=== PATIENT | male | born 1965 | race Caucasian/White ===

== ENCOUNTER 2016-06-16 12:00 | Emergency (ER) | payer OTHER ==
[~2016-06-16] VITALS: Ht 172.7 cm; Wt 100.1 kg
[~2016-06-16 12:00] MED LIST: ADVAIR HFA120 INHALA IH; ALPHAGAN P100 DROP/1 RIGHT EYE; ASPIR-LOW81 MG PO; CLEOCIN300 MG PO; DELTASONE20 M1 PO; FOLIC ACID1 MG PO; FUROSEMIDE40 MG PO; LO-DOSE ASPIRIN81 M2 PO; LOSARTAN POTASS25 MG PO; MEDROL DOSEPAK4 MG PO; METOPROLOL SUCC50 MG PO; NORCO 5/3251 TABLET PO; ONE DAILY MULT1 EACH PO; PRAVASTATIN SOD40 MG PO; PREDNISONE10 MG PO; PRILOSEC20 MG PO; PROAIR HFA8.5 GM IH; SPIRIVA RESPIMAT4 GM IH; SYMBICORT60 INHALAT IH; THIAMINE HCL100 MG PO; Thiamine,Vitamin B1 PO; VITAMIN B-1100 MG PO
[2016-06-16 12:47] LABS: EOSINOPHIL (%) 1.9 % (0-5); EOSINOPHIL COUNT 0.1 K/uL (0-0.3); HEMATOCRIT 40.9 % (38.0-50.0); IMMATURE GRANULOCYTE (%) 0.2 % (0.0-0.7); IMMATURE GRANULOCYTE COUNT 0.1 K/uL; LYMPHOCYTE COUNT 1.5 K/uL (1.0-2.8); MCH 33.9 PG (29.0-34.0); MCHC 34.5 G/DL (30.0-36.0); MCV 98.3 FL (86-99); MEAN PLAT.VOLUME 10.3 uM^3 (9.0-12.4); MONOCYTE (%) 9.7 % (3-12); MONOCYTE COUNT 0.5 K/uL (0-0.8); NEUTROPHIL (%) 54.8 % (45-76); NEUTROPHIL COUNT 2.5 K/uL (1.8-6.4); PLATELET COUNT 124 K/uL (156-360); RBC DIS.WIDTH-CV 13.5 % (11.8-14.6); RBC DIS.WIDTH-SD 47.5 % (39-53); RED BLOOD COUNT 4.16 M/uL (4.00-5.50); WHITE BLOOD COUNT 4.6 K/uL (4.1-10.2)
[2016-06-16 12:56] LABS: CHLORIDE 102 mEq/L (99-109); POTASSIUM 4.2 mEq/L (3.7-5.4); SODIUM 141 mEq/L (136-147)
[2016-06-16 12:58] LABS: GLUCOSE 164 mg/dL (70-99)
[2016-06-16 12:59] LABS: ANION GAP 17 MEQ/L (2-14)
[2016-06-16 13:01] LABS: GFR ESTIMATE (CALCULATED) > 59 mL/min/; SERUM ETHYL ALCOHOL 343 mg/dL
[2016-06-16 13:02] LABS: UREA NITROGEN (BUN) 15 mg/dL (9-23)
[2016-06-16] MEDS ORDERED: LIBRIUM25 MG PO (13:32)
[2016-06-16] MEDS ORDERED: THIAMINE HCL100 MG PO (14:53)
[2016-06-16 19:18] VITALS: BP 110/74
== END 2016-06-16 19:20 | disposition home or self-care (01) ==
LOC: EME 12:00
PROVIDERS: Emergency Medicine
DX: F10.229 Alcohol dependence with intoxication, unspecified (principal); I10 Essential (primary) hypertension; J44.9 Chronic obstructive pulmonary disease, unspecified; I95.9 Hypotension, unspecified; Z87.891 Personal history of nicotine dependence
CPT/HCPCS: 80048; 81003; 85025; 99281; 99285; G0480; J2310; J7030

== ENCOUNTER 2017-07-02 18:12 | Emergency (ER) | payer OTHER ==
[~2017-07-02] VITALS: Ht 172.7 cm; Wt 113.6 kg
[~2017-07-02 18:12] MED LIST changes: +LIBRIUM25 MG PO
[2017-07-02 19:53] LABS: HEMATOCRIT 44.5 % (38.0-50.0); HEMOGLOBIN 15.1 G/DL (12.5-16.6); MCH 31.6 PG (29.0-34.0); MCHC 33.9 G/DL (30.0-36.0); MCV 93.1 FL (86-99); RBC DIS.WIDTH-CV 14.8 % (11.8-14.6); RBC DIS.WIDTH-SD 50.9 % (39-53); RED BLOOD COUNT 4.78 M/uL (4.00-5.50); WHITE BLOOD COUNT 6.8 K/uL (4.1-10.2)
[2017-07-02 19:54] LABS: PLATELET COUNT 130 K/uL (156-360)
[2017-07-02 20:02] LABS: ALBUMIN 4.5 g/dL (3.2-4.8)
[2017-07-02 20:03] LABS: CHLORIDE 104 mEq/L (99-109); POTASSIUM 4.3 mEq/L (3.7-5.4); SODIUM 144 mEq/L (136-147)
[2017-07-02 20:05] LABS: GLUCOSE 109 mg/dL (70-99); TOTAL PROTEIN 7.2 g/dL (6.4-8.3)
[2017-07-02 20:07] LABS: TOTAL BILIRUBIN 0.4 mg/dL (0.0-1.0)
[2017-07-02 20:08] LABS: ALKALINE PHOSPHATASE 106 IU/L (3-129); SERUM ETHYL ALCOHOL 422 mg/dL
[2017-07-02 20:09] LABS: CREATININE 0.9 mg/dL (0.6-1.3); GFR ESTIMATE (CALCULATED) > 59 mL/min/ (58.99-99999)
[2017-07-02 20:10] LABS: AST (GOT) 117 IU/L (2-34); UREA NITROGEN (BUN) 12 mg/dL (9-23)
[2017-07-02 20:12] LABS: ALT (GPT) 93 IU/L (3-49); LIPASE 119 U/L (1.0-51.0)
[2017-07-02 21:21] LABS: APPEARANCE CLEAR ((CLEAR)); BILIRUBIN NEGATIVE; BLOOD NEGATIVE; COLOR YELLOW ((YELLOW)); GLUCOSE (STRIP) NEGATIVE; KETONES NEGATIVE; LEUKOCYTES NEGATIVE; NITRITE NEGATIVE; PROTEIN (STRIP) NEGATIVE; SPECIFIC GRAVITY 1.009 (1.000-1.030); UCUL ADDED? NO; UROBILINOGEN 0.2 MG/DL (0.2-1.0)
[2017-07-02 21:30] LABS: AMPHETAMINE NEGATIVE (500 ng/mL); BARBITURATES NEGATIVE (200 ng/mL); BENZODIAZEPINES NEGATIVE (150 ng/mL); BUPRENORPHINE NEGATIVE (10 ng/mL); COCAINE NEGATIVE (150 ng/mL); METHADONE NEGATIVE (200 ng/mL); METHAMPHETAMINE NEGATIVE (500 ng/mL); OPIATES (MORPHINE) NEGATIVE (100 ng/mL); OXYCODONE NEGATIVE (100 ng/mL); PHENCYCLIDINE NEGATIVE (25 ng/mL); PROPOXYPHENE NEGATIVE (300 ng/mL); THC CANNABINOIDS NEGATIVE (50 ng/mL); TRICYCLIC ANTIDEPRESSANTS NEGATIVE (300 ng/mL)
[2017-07-03] MEDS ORDERED: LIBRIUM25 MG PO (09:43)
[2017-07-03 10:00] VITALS: BP 139/98
== END 2017-07-03 10:44 | disposition home or self-care (01) ==
LOC: EME 18:12
PROVIDERS: Emergency Medicine
DX: F10.129 Alcohol abuse with intoxication, unspecified (principal); R00.0 Tachycardia, unspecified; Y90.8 Blood alcohol level of 240 mg/100 ml or more; I11.0 Hypertensive heart disease with heart failure; I50.9 Heart failure, unspecified; J44.9 Chronic obstructive pulmonary disease, unspecified; F17.200 Nicotine dependence, unspecified, uncomplicated
CPT/HCPCS: 80053; 81003; 82948; 83690; 85027; 90839; 99281; 99285; G0480; J2060; J3411; J7030